=== PATIENT | female | born 1950 | race Caucasian/White ===

== ENCOUNTER 2019-09-04 13:03 | Emergency (ER) | payer OTHER, SELFPAY ==
[2019-09-04 13:12] VITALS: BP 185/92; PULSE 89; RESP 18; TEMP 36.5; O2SAT 96
--- NOTE | 2019-09-04 13:27 | ED.GENADULT ---
HPI - General Adult General Chief complaint: Upper Respiratory Infection Stated complaint: rash on tongue/sore throat Time Seen by Provider: 09/04/19 13:27 Source: patient and RN notes reviewed Mode of arrival: ambulatory Limitations: no limitations History of Present Illness HPI narrative: This is a 69 years old female presented office for evaluation of sore throat for 1 week. Denies associated symptoms include runny nose, fever, shortness of breath, vomiting or diarrhea. She tried [id number] Tylenol for her pain. Denies sick contact. Denies recent antibiotic or new medication. Related Data Home Medications Medication Instructions Recorded Confirmed albuterol sulfate 2 puff INHALATION Q4-8H 09/04/19 09/04/19 duloxetine 30 mg PO DAILY 09/04/19 09/04/19 leflunomide 10 mg PO DAILY 09/04/19 09/04/19 Allergies Allergy/AdvReac Type Severity Reaction Status Date / Time methotrexate Allergy Numbness Verified 09/04/19 13:43 Review of Systems Review of Systems: Narrative: CONSTITUTIONAL: Denies fever or feeling ill ENT: Denies rhinorrhea, congestion, otalgia. Reports sore throat CARDIOVASCULAR: Denies chest pain RESPIRATORY: Denies dyspnea, wheezing. Reports chronic cough (nothing acute) GASTROINTESTINAL: Denies abdominal pain, nausea, vomiting SKIN: Denies rash MUSCULOSKELETAL: Denies acute back pain NEUROLOGIC: Denies lightheaded All other systems reviewed are negative, except as documented in HPI. PMFSH Past Medical History Medical History (Updated 09/04/19 @ 13:46 by KINSEY Talbot) Asthma Fibromyalgia Surgical History Surgical History (Updated 09/04/19 @ 13:22 by KINSEY Talbot) Hx of hysterectomy Hx of shoulder surgery Comments At time of signature, I agree with nursing past medical, surgical, social and family history. There is no relevant family history pertinent to the presenting complaint. Exam Narrative: Exam Narrative: GENERAL: This is a well-nourished, well-developed patient, in no apparent distress. THROAT: Mucous membranes moist, posterior pharynx clear, scatter aphathous ulcerate lesions noted. No enlarged tonsils. Uvula midline. No lymphadenopathy CARDIOVASCULAR: Regular rate and rhythm without murmurs, gallops, or rubs. RESPIRATORY: Clear to auscultation. Breath sounds equal bilaterally. No wheezes, rales, or rhonchi. GASTROINTESTINAL: Abdomen soft, non-tender, nondistended. Bowel sounds are active. No hepato-splenomegaly, or palpable masses. No guarding. SKIN: warm, intact with no suspicious lesions or rash, good texture and turgor. NEURO: awake, alert, and oriented to person, place and time. There were no obvious focal neurologic abnormalities. Steady gait Edilberto Coma Scale Eye Opening: Spontaneous 4 [place] Coma Scale Motor: Obeys Commands 6 Edilberto Coma Scale Verbal: Oriented 5 Course Vital Signs Vital signs: Vital Signs Temperature 97.7 F 09/04/19 13:12 Pulse Rate 89 09/04/19 13:12 Respiratory Rate 18 09/04/19 13:12 Blood Pressure 185/92 H 09/04/19 13:12 Pulse Oximetry 96 09/04/19 13:12 Temperature 97.7 F 09/04/19 13:12 Pulse Rate 89 09/04/19 13:12 Respiratory Rate 18 09/04/19 13:12 Blood Pressure 185/92 H 09/04/19 13:12 Pulse Oximetry 96 09/04/19 13:12 Medical Decision Making MDM Narrative Medical decision making narrative: Elevated BP noted: patient is informed that they may have pre-hypertension or hypertension based on a blood pressure reading in the department. I recommend the patient call the primary care provider listed on their discharge instructions or a physician of their choice this week to arrange follow-up for further evaluation of possible pre-hypertension or hypertension within 1-2week. Discharge instructions reviewed with patient, as well as provided in writing per nursing staff. The instructions also include specific and strict return/GO TO THE ER as well as f/u information. All questions hav
== END 2019-09-04 13:55 | disposition home or self-care (01) ==
PROVIDERS: Emergency Provider Nurse Practitioner; PCP Family Medicine
DX: J02.9 Acute pharyngitis, unspecified (principal); J45.909 Unspecified asthma, uncomplicated; M79.7 Fibromyalgia; R03.0 Elevated blood-pressure reading, without diagnosis of hypertension
CPT/HCPCS: 87081; 87880; 99213; G0463

== ENCOUNTER 2020-04-07 09:27 | Emergency (ER) | payer OTHER, SELFPAY ==
--- NOTE | ~2020-04-07 | XR_ITS ---
EXAMINATION: XR foot LT min 3V EXAM DATE: 04/07/2020 10:00 INDICATION: Inversion injury, lateral tarsal pain referring to 2nd toe. Initial encounter. TECHNIQUE: Left foot dorsoplantar, lateral and oblique projections obtained and reviewed. There is n o prior study for comparison. FINDINGS: Left metatarsal bones unremarkable. There is advanced 2nd, 3rd and 4th tarsometatarsal j oint osteoarthritis. There are no acute fractures or dislocations identified. There is no subcutaneo us gas. The soft tissue is unremarkable. There are no radiopaque foreign bodies. IMPRESSION: 1. Left foot exam without acute osseous findings. 2. Advanced tarsometatarsal osteoarthritis. Reviewed, dictated and finalized at location A. FIC TECHNICIAN
--- NOTE | 2020-04-07 09:33 | ED.GENADULT ---
HPI - General Adult General Chief complaint: Extremity Injury, Lower Stated complaint: Extremity Injury, Lower Time Seen by Provider: 04/07/20 09:32 Source: patient Mode of arrival: ambulatory Limitations: no limitations History of Present Illness HPI narrative: 70-year-old female patient presents to the [facility] with complaints of left ankle and foot pain for the past 2 weeks. Patient states she went to go get out of her car and went to go and stepped up and twisted her left ankle. Patient states it has been hurting since then but states that she did get a compression sleeve that she has been wearing that has helped. Patient denies taking any Tylenol or ibuprofen. Patient states she has been icing it since the incident. Denies any numbness or tingling to the toes. Patient states she is able to walk on it but states it hurts when she stands. Patient states most of the pain is on the lateral side of the left foot right under the lateral malleolus area. Related Data Home Medications Medication Instructions Recorded Confirmed albuterol sulfate 2 puff INHALATION Q4-8H 09/04/19 09/04/19 duloxetine 30 mg PO DAILY 09/04/19 09/04/19 leflunomide 10 mg PO DAILY 09/04/19 09/04/19 alendronate 70 mg PO WEEKLY 04/07/20 04/07/20 fluticasone furoate-vilanterol 1 inh INHALATION DAILY 04/07/20 04/07/20 [Breo Ellipta] fluticasone propionate 1 spray INTRANASAL DAILY 04/07/20 04/07/20 prednisone 5 mg PO DAILY 04/07/20 04/07/20 Allergies Allergy/AdvReac Type Severity Reaction Status Date / Time methotrexate Allergy Numbness Verified 04/07/20 09:54 Review of Systems Review of Systems: Narrative: CONSTITUTIONAL: Denies fever, chills, or sweats. EYES: Denies visual changes, redness, or discharge. ENT: Denies rhinorrhea, congestion, sore throat, or otalgia. CARDIOVASCULAR: Denies chest pain, palpitations, or edema. RESPIRATORY: Denies cough or dyspnea. GASTROINTESTINAL: Denies abdominal pain, nausea, vomiting, or diarrhea. GENITOURINARY: Denies dysuria or hematuria. SKIN: Denies rash or itching. MUSCULOSKELETAL: Denies back pain, joint pain, or myalgia. Positive left foot and ankle pain x2 weeks NEUROLOGIC: Denies headache, numbness, or weakness. PSYCHIATRIC: Denies anxiety or depression. [facility] Past Medical History Medical History (Updated 04/07/20 @ 10:10 by KINSEY Mac) Asthma Fibromyalgia Surgical History Surgical History (Updated 04/07/20 @ 09:33 by KINSEY Mac) H/O Spinal surgery Hx of hysterectomy Hx of shoulder surgery Comments At the time of my signature I agree with nursing past medical history, surgical, social, and family history. There is no relevant family history pertinent to the presenting complaint. Exam Narrative: Exam Narrative: GENERAL: Well-appearing, well-nourished, and in no acute distress. HEAD: Normocephalic, atraumatic. EYES: PERRLA and EOMI. ENT: Nares clear, no rhinorrhea or epistaxis. Mucous membranes moist. NECK: Supple. No lymphadenopathy CHEST: Clear to auscultation. No respiratory distress. HEART: Regular rate and rhythm. No murmur heard. Normal peripheral pulses. ABDOMEN: Soft, nontender, nondistended, normal active bowel sounds. EXTREMITIES: Patient is able to bear weight and ambulate but has increased pain to the left ankle. The L ankle is without obvious asymmetry or deformity when compared to the R ankle. Patient can flex/extend, invert/nancy. No obvious surface trauma, ecchymosis, or soft tissue swelling. No body tenderness to palpation over the medial or lateral malleolus. There is some tenderness on palpation right under the lateral malleolus area to a ligaments. Anterior talofibular ligament, posterior talofibular ligament, calcaneofibular ligament nontender and without swelling. No tenderness or deformity of the midfoot or over the proximal fifth metatarsal. Good DP and posterior tibial pulses and sensation to light touch normal. Talar tilt test is negative for ligame
[2020-04-07 09:39] VITALS: BP 148/79; PULSE 84; RESP 18; TEMP 36.2; O2SAT 97
== END 2020-04-07 10:14 | disposition home or self-care (01) ==
PROVIDERS: Emergency Provider Nurse Practitioner Family; PCP Family Medicine
DX: S93.402A Sprain of unspecified ligament of left ankle, initial encounter (principal); X50.9XXA Other and unspecified overexertion or strenuous movements or postures, initial encounter; J45.909 Unspecified asthma, uncomplicated; M79.7 Fibromyalgia
CPT/HCPCS: 73630; 99213; G0463

== ENCOUNTER 2021-12-31 11:18 | Emergency (ER) | payer OTHER, SELFPAY ==
--- NOTE | ~2021-12-31 | XR_ITS ---
EXAMINATION: XR knee LT min 4V DATE: 12/31/2021 12:05 INDICATION: Left knee pain. Fall. TECHNIQUE: 5 views of left knee were obtained. COMPARISON: None. FINDINGS: There is lateral subluxation of patella. No fracture. There is mild tricompartmental osteoa rthritis characterized by tiny osteophytes. No joint space narrowing. No any joint effusion. IMPRESSION: 1. Mild left knee osteoarthritis. Reviewed, dictated and finalized at location B.
--- NOTE | ~2021-12-31 | XR_ITS ---
EXAMINATION: XR knee RT min 4V DATE: 12/31/2021 12:05 INDICATION: Right knee pain. Fall. TECHNIQUE: 5 views of right knee were obtained. COMPARISON: None. FINDINGS: There is lateral subluxation of patella. No fracture. Patella is bipartite. There is modera te osteoarthritis of medial compartment, mild osteoarthritis of lateral compartment, and severe osteo arthritis of patellofemoral compartment. There is a moderate-sized knee joint with loose bodies. IMPRESSION: 1. Severe right knee osteoarthritis. 2. Moderate-sized knee joint effusion with loose bodies. Reviewed, dictated and finalized at location B.
[2021-12-31 11:30] VITALS: BP 133/79; PULSE 97; RESP 16; TEMP 36.7; O2SAT 98
--- NOTE | 2021-12-31 12:40 | ED.LOWEXIN ---
HPI - Extremity Injury (Lower) General Chief Complaint: Extremity Injury, Lower Stated Complaint: Fell over Tree root/knees painful Time Seen by Provider: 12/31/21 12:40 Source: patient Mode of arrival: ambulatory Limitations: no limitations History of Present Illness HPI Narrative: 71 y/o female presented for c/o pain to bilateral knees after injury 5 days ago. States she tripped over a tree root, landing on both knees. Endorses pain with weight bearing, worse on right knee. Also endorses puncture wound to left posterior thigh with surrounding bruising, reports improvement in the appearance and the pain. Taking tylenol for pain. Denies swelling, bruising, numbness, tingling, weakness of the extremities. Related Data Home Medications Medication Instructions Recorded Confirmed albuterol sulfate 90 mcg/actuation 2 puff inhalation Q4-8H sob 09/04/19 12/31/21 aerosol inhaler duloxetine 30 mg capsule,delayed 30 mg PO DAILY 09/04/19 12/31/21 release alendronate 70 mg tablet 70 mg PO WEEKLY 04/07/20 12/31/21 fluticasone furoate 100 1 inh inhalation DAILY 04/07/20 12/31/21 mcg-vilanterol 25 mcg/dose inhalation powder (Breo Ellipta) prednisone 5 mg tablet 5 mg PO DAILY 04/07/20 12/31/21 prasterone (dhea) 25 mg capsule 25 mg PO DAILY 07/05/21 12/31/21 Allergies Allergy/AdvReac Type Severity Reaction Status Date / Time methotrexate Allergy Numbness Verified 12/31/21 12:36 Review of Systems Review of Systems: CONSTITUTIONAL: Denies body aches, fever, chills EYES: Denies visual changes CARDIOVASCULAR: Denies chest pain, palpitations, or edema. RESPIRATORY: Denies cough or dyspnea. SKIN: Denies rash, itching, or wounds. MUSCULOSKELETAL: Reports bilateral knee pain NEUROLOGIC: Denies headache, numbness, tingling, or weakness. All systems reviewed & are unremarkable except as noted in HPI and below PMFSH Past Medical History Medical History Asthma Fibromyalgia Surgical History Surgical History H/O Spinal surgery Hx of hysterectomy Hx of shoulder surgery Comments At time of signature, I have reviewed and agree with nursing past medical, surgical, social and family history unless otherwise noted. Please see nursing chart for further information. There is no relevant family history pertinent to the presenting complaint Exam Narrative: GENERAL: Well-appearing CHEST: Speaks in full sentences. No respiratory distress. HEART: Regular rate and rhythm. Normal and equal peripheral pulses. EXTREMITIES: Right knee with mild swelling, no bruising or redness. Mild tenderness to palpation distal aspect of knee. No apparent knee effusion; Legs with normal strength and sensation, slightly decreased range of motion to knees, No open wounds or obvious deformity; pulse palpable and equal bilaterally, skin warm, dry, pink. Capillary refill less than 3 seconds. SKIN: Warm, dry, Left upper posterior thigh with approx0.5cm diameter scabbed puncture wound with surrounding bruising, mild tenderness, no apparent cellulitis, drainage, warmth or induration. NEURO: Alert and oriented x3. Course Course Emergency Course: Patient is aware of diagnosis, understands and agrees to treatment plan. Anticipatory guidance given. Patient agrees to follow-up as directed and is aware of reasons to seek care at the emergency department. Portions of this record may have been created with voice recognition software Level of Care: Express Care Visit Vital Signs Vital signs: Vital Signs Temperature 98.1 F 12/31/21 11:30 Pulse Rate 97 12/31/21 11:30 Respiratory Rate 16 12/31/21 11:30 Blood Pressure 133/79 12/31/21 11:30 Pulse Oximetry 98 12/31/21 11:30 Oxygen Delivery Room Air 12/31/21 11:30 Temperature 98.1 F 12/31/21 11:30 Pulse Rate 97 12/31/21 11:30 Respiratory Rate 16 12/31/21 11:30 Blood
== END 2021-12-31 13:00 | disposition home or self-care (01) ==
PROVIDERS: Emergency Provider Nurse Practitioner Family; PCP Family Medicine
DX: M25.562 Pain in left knee (principal); M25.561 Pain in right knee; J45.909 Unspecified asthma, uncomplicated; M79.7 Fibromyalgia
CPT/HCPCS: 73564; 99214; G0463